=== PATIENT | female | born 1970 | race Caucasian/White ===

== ENCOUNTER 2023-12-15 13:28 | Outpatient (AMB) | payer OTHER, SELFPAY ==
--- NOTE | 2023-12-15 13:48 | A.OFFPC_ITS ---
Vital Signs 12/15/23 13:50 Height 5 ft 2.44 in Weight 158 lb 6 oz BMI 28.6 BP 104/80 Blood Pressure Location Lt brachial Position Sitting Respiration 14 Pulse 87 Pulse Source Pulse Oximeter Temp 98.2 F Temp Source Oral Pulse Oximetry (%) 95 Oxygen Delivery Method Room Air Intake Visit Reasons: Establish Care transfer from [facility] Intake Note: New patient visit Allergies cefuroxime [From Ceftin] Allergy (Unknown, Verified 12/15/23 13:55) Migraine Penicillins Allergy (Unknown, Verified 12/15/23 13:55) Rash Medication List - Last Reconciled 12/15/23 by Emiliana Ferris MD fexofenadine-pseudoephedrine 180-240 mg ER (Kaya-D 24 Hour) 1 tab PO QAM nitrofurantoin monohyd/m-cryst 100 mg 1 cap PO BID Tobacco use date assessed: 12/15/23 Dental Screening Dental Screen Date: 12/15/23 Did you have a dental visit in the last 12 months?: Yes Did you have a dental problem in the last 6 months where you did not have access to dental care?: No Was dental information given to patient?: Patient has dentist HPI HPI Comments History of Present Illness Details This is a 52 year old female with a past medical history of asthma, seasonal allergies presenting for follow up Tried wegovy without weight loss. Mounjaro was not covered. She has rejoined weight watchers and has lost ~20 pounds. DDD: Post vaccine (Covid)-intermittently fatigue, achy with joint and muscle pain. Back pain and spasm Over the past six months has noticed that she is having poor concentration and memory. She is managing by keeping task and to do lists. She has had covid in the past. 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 ROS CONSTITUTIONAL: Denies weight loss, fever and chills. HEENT: Denies changes in vision and hearing. RESPIRATORY: Denies SOB and cough. CV: Denies palpitations and CP GI: Denies abdominal pain, nausea, vomiting and diarrhea. : Denies dysuria and urinary frequency. MSK: Denies new myalgia and joint pain. SKIN: Denies rash and pruritus. NEUROLOGICAL: Denies headache PSYCHIATRIC: Denies recent changes in mood. PHYSICAL EXAM: GENERAL: Alert and oriented x 3. NAD EYES: EOMI. Anicteric. HENT: Moist mucous membranes. No scleral icterus. No cervical lymphadenopathy. LUNGS: Clear to auscultation bilaterally. CARDIOVASCULAR: Regular rate and rhythm. No murmur. No JVD. ABDOMEN: Soft, non-tender +bs EXTREMITIES: No edema. Non-tender. SKIN: No rashes or lesions. Warm. NEUROLOGIC: No focal neurological deficits. CN II-XII grossly intact PSYCHIATRIC: Cooperative. Appropriate mood and affect [facility] Medical History (Updated 12/17/23 @ 10:06 by Emiliana Ferris MD) Severe obesity Seasonal allergies Obesity Muscle cramps Joint ache DDD (degenerative disc disease), lumbar Asthma Arthritis Family History (Updated 12/15/23 @ 14:01 by Erika Greene CMA) Mother Diabetes HTN (hypertension) Hypercholesteremia Father Stomach cancer Prostate cancer Alcoholism Father Pancreatic cancer Maternal Grandfather Alcoholism Other Substance use Social History Housing: House Patient Tobacco Use Status: Never used Tobacco e-Cigarette/Vaping Use: Never Used Second Hand Smoke Exposure: Yes service: No 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 1. Little interest or pleasure in doing things: not at all 2. Feeling down, depressed, or hopeless: not at all 3. Trouble falling or staying asleep, or sleeping too much: several days 4. Feeling tired or having little energy: several days 5. Poor appetite or overeating: not at all 6. Feeling bad about yourself - or that you are a failure or have let yourself or your family down: not at all 7. Trouble concentrating on things, such as reading the newspaper or watching television: nearly every day 8. Moving or speaking so slowly that other people could have noticed. Or the opposite - being so fidgety or restless that you have been moving around a lot more than usual: not at all 9. Thoughts that you would be better off or of hurting yourself in some way: not at all Total score: 5 Depression Screening Interpretation: Positive Depression Screening Done: Yes 98461 - PHQ-9 Billing: Yes Source: Developed by Celine DcW. Griffin, Ralph Lopez and colleagues, with an educational kimberly from [employer]. Thrive Questionnaire Date Thrive assessed: 12/15/23 I am a: Patient What is your living situation today?: I have a steady place to live Within the past 12 months, did the food you bought not last and you didn't have the money to get more?: Never true Within the past 12 months, did you worry whether your food would run out before you got money to buy more?: Never true Do you have trouble paying for medicines?: No Do you have trouble getting transportation to medical appointments?: No Do you have trouble paying your heating and electricity bill?: No Do you have trouble taking care of your child, family member or friend?: No Do you have trouble with day-to-day activities such as bathing, preparing meals, shopping, managing finances, etc.?: No Are you currently unemployed and looking for a job?: No Are you interested in more education?: No Please select the resources that you would like help with: None Currently or been in a relationship where the following occur: no concerns reported THRIVE Score: 0 AUDIT C Alcohol Use Questionnaire (AUDIT-C) 1. How often do you have a drink containing alcohol?: 2-4 times a month 2. How many drinks containing alcohol do you have on a typical day when you are drinking?: 1 or 2 3. How often do you have six or more drinks on one occasion?: Never Total Score: 2 HALEY-7 AMB Questionnaire HALEY-7 Date HALEY - 7 assessed: 12/15/23 Feeling nervous, anxious, or on edge: 0 = Not at all Not being able to stop or control worryin = Not at all Worrying too much about different things: 0 = Not at all Trouble relaxin = Not at all Being so restless that it is hard to sit still: 0 = Not at all Becoming easily annoyed or irritable: 0 = Not at all Feeling afraid as if something awful might happen: 0 = Not at all Total HALEY-7 score (0-4 normal; 5-9 mild; 10-14 moderate; 15-21 severe): 0 Source: Developed by Celine Dc Kurt Kroenke and colleagues, with an educational kimberly from [employer]. HALEY-7 Assessment Billing HALEY-7 Assessment Tool: HALEY-7 Assessment 10381 Physical exam (Primary Care) Vital Signs: Last Vital Signs Temp 98.2 F 12/15/23 13:50 Pulse 87 12/15/23 13:50 Resp 14 12/15/23 13:50 BP 104/80 12/15/23 13:50 Pulse Ox 95 12/15/23 13:50 Oxygen Delivery Method Room Air 12/15/23 13:50 BMI result Body Mass Index 28.6 Tobacco/Smoking Status: Tobacco use Status Tobacco use date assessed 12/15/23 12/15/23 14:00 Patient Tobacco Use Status Never used Tobacco 12/15/23 14:00 e-Cigarette/Vaping Use Never Used 12/15/23 14:00 PHQ-9: PHQ-9 Score PHQ-9: Total score 5 12/15/23 14:21 Depression Screening Interpretation: Positive Thrive Assessment: Date of Thrive Assessment Date Thrive assessed 12/15/23 12/15/23 14:03 Currently or been in a relationship where the following occur: no concerns reported Assessment and Plan Assessment & Plan (1) Memory change: Comment: Labs ordered. Trial wellbutrin Code(s): R41.3 - Other amnesia (2) Attention deficit: Comment: Trial wellbutrin-150 x 7 days then increase to 300mg daily. Discussed potential SE Code(s): R41.840 - Attention and concentration deficit (3) Severe obesity: Comment: Continue weight watchers. Congratulated on weight loss. Code(s): E66.01 - Morbid (severe) obesity due to excess calories Orders: Orders Vitamin D 1,25 dihydroxy 12/15/23 R41.3 - Other amnesia TSH reflex Free T4 12/15/23 R41.3 - Other amnesia Vitamin B12 and Folate 12/15/23 R41.3 - Other amnesia Referrals Dermatology Referral L98.9 - Disorder of the skin and subcutaneous tissue, unspecified Medications: New bupropion HCl XL 150 mg PO DAILY 7 tabs 0RF 7 days bupropion HCl XL 300 mg PO QAM 90 tabs 3RF 90 days Coding Level of Care Code Tele Est Pt Level 4 (51578) Complex EM visit Add On G2211 Diagnoses Memory change R41.3 Attention deficit R41.840 Severe obesity E66.01 Additional Codes HALEY-7 Assessment Billing - HALEY-7 Assessment Tool: HALEY-7 Assessment 63394 ([id number])
[2023-12-15 13:50] VITALS: BP 104/80; PULSE 87; RESP 14; TEMP 36.8; O2SAT 95; BMI 28.6
== END 2023-12-15 14:24 | disposition home or self-care (01) ==
PROVIDERS: PCP Internal Medicine; Visit Provider Internal Medicine
DX: R41.3 Other amnesia (principal); R41.840 Attention and concentration deficit; E66.01 Morbid (severe) obesity due to excess calories; Z68.28 Body mass index [BMI] 28.0-28.9, adult
CPT/HCPCS: 99214; G2211

== ENCOUNTER 2023-12-15 14:27 | Outpatient (REF) | payer OTHER, SELFPAY ==
[2023-12-15 19:07] LABS: TSH reflex Free T4 2.13 uIU/mL (0.32-4.0)
[2023-12-15 19:21] LABS: Folate 7.9 ng/mL (> or = 4.0); Vitamin B12 286 pg/mL (200-900)
[2023-12-21 09:23] LABS: VITAMIN D (1,25 OH) D3 68 pg/mL; Vit D (1,25-Dihydroxy) Total 68 pg/mL (18-72); Vitamin D (1,25 OH) D2 <8 pg/mL
== END 2023-12-15 14:28 | disposition home or self-care (01) ==
LOC: HO.WFDLDS 14:27
PROVIDERS: Visit Provider Internal Medicine
DX: R41.3 Other amnesia (principal)
CPT/HCPCS: 36415; 82607; 82652; 82746; 84443

== ENCOUNTER 2024-05-30 15:50 | Outpatient (AMB) | payer OTHER, SELFPAY ==
--- NOTE | 2024-05-30 16:26 | MHC.PC.OV ---
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 Mounjaro was not covered. She has rejoined weight watchers and has lost ~20 pounds. DDD: Post vaccine (Covid)-intermittently fatigue, achy with joint and muscle pain. Back pain and spasm At last visit-Over the past six months has noticed that she is having poor concentration and memory. She is managing by keeping task and to do lists. She has had covid in the past. Doing okay on wellbutrin 150mg daily. Did not like 300mg daily. 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 Mammo: ordered, due Colonoscopy 2022 ROS CONSTITUTIONAL: Denies weight loss, fever and chills. HEENT: Denies changes in vision and hearing. RESPIRATORY: Denies SOB and cough. CV: Denies palpitations and CP GI: Denies abdominal pain, nausea, vomiting and diarrhea. : Denies dysuria and urinary frequency. MSK: Denies new myalgia and joint pain. SKIN: Denies rash and pruritus. NEUROLOGICAL: Denies headache PSYCHIATRIC: Denies recent changes in mood. PHYSICAL EXAM: GENERAL: Alert and oriented x 3. NAD EYES: EOMI. Anicteric. HENT: Moist mucous membranes. No scleral icterus. No cervical lymphadenopathy. LUNGS: Clear to auscultation bilaterally. CARDIOVASCULAR: Regular rate and rhythm. No murmur. No JVD. ABDOMEN: Soft, non-tender +bs EXTREMITIES: No edema. Non-tender. SKIN: No rashes or lesions. Warm. NEUROLOGIC: No focal neurological deficits. CN II-XII grossly intact PSYCHIATRIC: Cooperative. 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 1. Little interest or pleasure in doing things: not at all 2. Feeling down, depressed, or hopeless: not at all 3. Trouble falling or staying asleep, or sleeping too much: not at all 4. Feeling tired or having little energy: not at all 5. Poor appetite or overeating: not at all 6. Feeling bad about yourself - or that you are a failure or have let yourself or your family down: not at all 7. Trouble concentrating on things, such as reading the newspaper or watching television: nearly every day 8. Moving or speaking so slowly that other people could have noticed. Or the opposite - being so fidgety or restless that you have been moving around a lot more than usual: not at all 9. Thoughts that you would be better off or of hurting yourself in some way: not at all Total score: 3 Source: Developed by Drs. Simon Bonilla, Celine Moya, Ralph Lopez and colleagues, with an educational kimberly from [employer]. Thrive Questionnaire Date Thrive assessed: 05/23/24 I am a: Patient What is your living situation today?: I have a steady place to live Within the past 12 months, did the food you bought not last and you didn't have the money to get more?: Never true Within the past 12 months, did you worry whether your food would run out before you got money to buy more?: Never true Do you have trouble paying for medicines?: No Do you have trouble getting transportation to medical appointments?: No Do you have trouble paying your heating and electricity bill?: No Do you have trouble taking care of your child, family member or friend?: No Do you have trouble with day-to-day activities such as bathing, preparing meals, shopping, managing finances, etc.?: No Are you currently unemployed and looking for a job?: No Are you interested in more education?: No Please select the resources that you would like help with: None Currently or been in a relationship where the following occur: No concerns reported THRIVE Score: 0 AUDIT C Alcohol Use Questionnaire (AUDIT-C) 1. How often do you have a drink containing alcohol?: Monthly or less 2. How many drinks containing alcohol do you have on a typical day when you are drinking?: 1 or 2 3. How often do you have six or more drinks on one occasion?: Never Total Score: 1 HALEY-7 AMB Questionnaire HALEY-7 Date HALEY - 7 assessed: 12/15/23 Feeling nervous, anxious, or on edge: 2 = More than half the days Not being able to stop or control worryin = Not at all Worrying too much about different things: 1 = Several days Trouble relaxin = Several days Being so restless that it is hard to sit still: 3 = Nearly every day Becoming easily annoyed or irritable: 1 = Several days Feeling afraid as if something awful might happen: 0 = Not at all Total HALEY-7 score (0-4 normal; 5-9 mild; 10-14 moderate; 15-21 severe): 8 Source: Developed by Drs. Simon Bonilla, Celine Moya, Ralph Lopez and colleagues, with an educational kimberly from [employer]. Physical exam (Primary Care) Vital Signs: Last Vital Signs Pulse 93 05/30/24 16:28 BP 114/76 05/30/24 16:28 Pulse Ox 95 05/30/24 16:28 Oxygen Delivery Method Room Air 05/30/24 16:28 BMI result Body Mass Index 39.9 Tobacco/Smoking Status: Tobacco use Status Tobacco use date assessed 12/15/23 05/30/24 16:31 Patient Tobacco Use Status Never used Tobacco 05/30/24 16:31 e-Cigarette/Vaping Use Never Used 05/30/24 16:31 PHQ-9: PHQ-9 Score PHQ-9: Total score 3 05/30/24 16:37 Thrive Assessment: Date of Thrive Assessment Date Thrive assessed 05/23/24 05/30/24 16:31 Currently or been in a relationship where the following occur: No concerns reported Coding Level of Care Code Est Pt Prev Care 40-64y(65815) Diagnoses Physical exam Z00.00 Memory change R41.3 Assessment & Plan Assessment & Plan (1) Physical exam: Code(s): Z00.00 - Encounter for general adult medical examination without abnormal findings Category: Medical Plan: 54 y/o for cpe preventive measures for age discussed Due for mammogram. ordered (2) Memory change: Code(s): R41.3 - Other amnesia Category: Medical Plan: continue wellbutrin 150mg daily Start adderall 10mg twice daily Orders: Orders MM screening mammo BI 05/30/24 Z12.31 - Encounter for screening mammogram for malignant neoplasm of breast Complete Blood Count Auto Diff 05/30/24 Z00.00 - Encounter for general adult medical examination without abnormal findings, R41.840 - Attention and concentration deficit, Z13.0 - Encounter for screening for diseases of the blood and blood-forming organs and certain disorders involving the immune mechanism, Z13.228 - Encounter for screening for other metabolic disorders Comprehensive Met. Panel 05/30/24 Z00.00 - Encounter for general adult medical examination without abnormal findings, R41.840 - Attention and concentration deficit, Z13.0 - Encounter for screening for diseases of the blood and blood-forming organs and certain disorders involving the immune mechanism, Z13.228 - Encounter for screening for other metabolic disorders Lipid Panel 05/30/24 Z00.00 - Encounter for general adult medical examination without abnormal findings, R41.840 - Attention and concentration deficit, Z13.0 - Encounter for screening for diseases of the blood and blood-forming organs and certain disorders involving the immune mechanism, Z13.228 - Encounter for screening for other metabolic disorders Medications: New bupropion HCl SR (Wellbutrin SR) 150 mg PO DAILY 7 tabs 0RF dextroamphetamine-amphetamine 10 mg (Adderall) administer doses at least 4-6 hours apart; Partial Fill upon patient request. 10 mg PO BID 60 tabs 0RF Discontinued bupropion HCl XL Discontinued Reason: Doctor's Order 300 mg PO QAM 90 days 90 tabs 3RF
[2024-05-30 16:28] VITALS: BP 114/76; PULSE 93; O2SAT 95; BMI 39.9
== END 2024-05-30 17:02 | disposition home or self-care (01) ==
PROVIDERS: PCP Internal Medicine; Visit Provider Internal Medicine
DX: Z00.00 Encounter for general adult medical examination without abnormal findings (principal); R41.3 Other amnesia

== ENCOUNTER 2024-06-10 09:42 | Outpatient (REF) | payer OTHER, SELFPAY ==
[2024-06-10 10:55] LABS: MANUAL DIFF FLAG NO
[2024-06-10 11:03] LABS: Basophils Percent Auto 0.4 % (0-2); Eosinophils Absolute Auto 0.1 X10*3/uL (0.0-0.4); Eosinophils Percent Auto 1.8 % (0-4); Hemoglobin 13.1 g/dl (12.0-16.0); Imm Gran Abs Auto 0.02 X10*3/uL (0.00-0.03); Imm Gran Pct Auto 0.3 % (0.0-0.4); Lymphocytes Absolute Auto 2.4 X10*3/uL (1.2-4.9); Lymphocytes Percent Auto 33.4 % (20-40); Mean Corpuscular HGB Conc 33.6 g/dl (31.0-35.0); Mean Corpuscular Volume 89.4 fL (80.0-98.0); Mean Platelet Volume 10.2 fL (9.4-12.3); Monocytes Absolute Auto 0.7 X10*3/uL (0.1-1.2); Monocytes Percent Auto 9.5 % (2-11); Neutrophils Percent Auto 54.6 % (45-73); Platelet Count 300 X10*3/uL (160-400); Red Blood Count 4.36 X10*6/uL (4.20-5.50); Red Cell Distribution Width 13.6 % (11.0-16.0); White Blood Count 7.2 X10*3/uL (4.8-10.8)
[2024-06-10 11:52] LABS: Alanine Aminotransferase 30 U/L (0-31); Albumin Level 4.5 g/dL (3.5-5.0); Alkaline Phosphatase 32 U/L (39-117); Anion Gap 10 (12-20); Aspartate Amino Transferase 20 U/L (5-31); Bilirubin Total 0.3 mg/dL (0.0-1.0); Blood Urea Nitrogen 27 mg/dL (9-16); Calcium 10.3 mg/dL (8.4-10.2); Carbon Dioxide 29 mmol/L (22-29); Chloride 104 mmol/L (96-108); Cholesterol 217 mg/dL (<200); Estimated Glomerular Filt Rate > 60; Glucose Random 89 mg/dL (60-115); HDL Cholesterol 55 mg/dL (>40); LDL Cholesterol Calculated 143 mg/dL (<100); Potassium 4.2 mmol/L (3.3-5.1); Sodium 139 mmol/L (135-145); Total Protein 7.7 g/dL (6.5-8.0); Triglycerides 98 mg/dL (<150)
== END 2024-06-10 09:43 | disposition home or self-care (01) ==
LOC: HO.WFDLDS 09:42
PROVIDERS: Visit Provider Internal Medicine
DX: Z00.00 Encounter for general adult medical examination without abnormal findings (principal); R41.840 Attention and concentration deficit; Z13.0 Encounter for screening for diseases of the blood and blood-forming organs and certain disorders involving the immune mechanism; Z13.228 Encounter for screening for other metabolic disorders
CPT/HCPCS: 36415; 80053; 80061; 85025

== ENCOUNTER 2024-11-29 14:36 | Outpatient (AMB) | payer OTHER, SELFPAY ==
--- NOTE | 2024-11-29 14:46 | MHC.PC.OV ---
Vital Signs 11/29/24 14:50 Height 5 ft 2.44 in Weight 238 lb 8 oz BMI 43.0 BP 108/76 Blood Pressure Location Lt brachial Position Sitting Respiration 14 Pulse 102 H Pulse Source Pulse Oximeter Pulse Oximetry (%) 96 Oxygen Delivery Method Room Air Intake Visit Reasons: follow up-cpe Intake Note: Physical Economic Development Specialist Required: No Allergies cefuroxime [From Ceftin] Allergy (Unknown, Verified 11/29/24 14:46) Migraine Penicillins Allergy (Unknown, Verified 11/29/24 14:46) Rash Tobacco use date assessed: 11/29/24 Dental Screening Dental Screen Date: 11/29/24 Did you have a dental visit in the last 12 months?: Yes Did you have a dental problem in the last 6 months where you did not have access to dental care?: No Was dental information given to patient?: Patient has dentist HPI HPI Comments History of Present Illness Details This is a 54 year old female with a past medical history of hyperlipidemia, asthma, seasonal allergies presenting for follow up Tried wegovy without weight loss. Mounjaro was not covered. Despite doing weight watchers, exercising and eating a low calorie diet she has gained considerable amount of weight over the past year. DDD: Post vaccine (Covid)-intermittently fatigue, achy with joint and muscle pain. Back pain and spasm Attention deficit: She is doing well on adderall. Signed CSA today. 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 Mammo: UTD Colonoscopy 2022 ROS CONSTITUTIONAL: Denies weight loss, fever and chills. HEENT: Denies changes in vision and hearing. RESPIRATORY: Denies SOB and cough. CV: Denies palpitations and CP GI: Denies abdominal pain, nausea, vomiting and diarrhea. : Denies dysuria and urinary frequency. MSK: Denies new myalgia and joint pain. SKIN: Denies rash and pruritus. NEUROLOGICAL: Denies headache PSYCHIATRIC: Denies recent changes in mood. PHYSICAL EXAM: GENERAL: Alert and oriented x 3. NAD EYES: EOMI. Anicteric. HENT: Moist mucous membranes. No scleral icterus. No cervical lymphadenopathy. LUNGS: Clear to auscultation bilaterally. CARDIOVASCULAR: Regular rate and rhythm. No murmur. No JVD. ABDOMEN: Soft, non-tender +bs EXTREMITIES: No edema. Non-tender. SKIN: No rashes or lesions. Warm. NEUROLOGIC: No focal neurological deficits. CN II-XII grossly intact PSYCHIATRIC: Cooperative. 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 1. Little interest or pleasure in doing things: not at all 2. Feeling down, depressed, or hopeless: not at all 3. Trouble falling or staying asleep, or sleeping too much: not at all 4. Feeling tired or having little energy: not at all 5. Poor appetite or overeating: several days 6. Feeling bad about yourself - or that you are a failure or have let yourself or your family down: not at all 7. Trouble concentrating on things, such as reading the newspaper or watching television: more than half the days 8. Moving or speaking so slowly that other people could have noticed. Or the opposite - being so fidgety or restless that you have been moving around a lot more than usual: not at all 9. Thoughts that you would be better off or of hurting yourself in some way: not at all Total score: 3 Depression Screening Interpretation: Negative Depression Screening Done: Yes 09018 - PHQ-9 Billing: Yes Source: Developed by Drs. Simon Bonilla, Celine Moya, Ralph Lopez and colleagues, with an educational kimberly from [employer]. Thrive Questionnaire Date Thrive assessed: 11/29/24 I am a: Patient What is your living situation today?: I have a steady place to live Within the past 12 months, did the food you bought not last and you didn't have the money to get more?: Never true Within the past 12 months, did you worry whether your food would run out before you got money to buy more?: Never true Do you have trouble paying for medicines?: No Do you have trouble getting transportation to medical appointments?: No Do you have trouble paying your heating and electricity bill?: No Do you have trouble taking care of your child, family member or friend?: No Do you have trouble with day-to-day activities such as bathing, preparing meals, shopping, managing finances, etc.?: No Are you currently unemployed and looking for a job?: No Are you interested in more education?: No Please select the resources that you would like help with: None Currently or been in a relationship where the following occur: No concerns reported THRIVE Score: 0 AUDIT C Alcohol Use Questionnaire (AUDIT-C) 1. How often do you have a drink containing alcohol?: Monthly or less 2. How many drinks containing alcohol do you have on a typical day when you are drinking?: 1 or 2 3. How often do you have six or more drinks on one occasion?: Never Total Score: 1 HALEY-7 AMB Questionnaire HALEY-7 Date HALEY - 7 assessed: 11/29/24 Feeling nervous, anxious, or on edge: 1 = Several days Not being able to stop or control worryin = Several days Worrying too much about different things: 1 = Several days Trouble relaxin = Several days Being so restless that it is hard to sit still: 1 = Several days Becoming easily annoyed or irritable: 1 = Several days Feeling afraid as if something awful might happen: 0 = Not at all Total HALEY-7 score (0-4 normal; 5-9 mild; 10-14 moderate; 15-21 severe): 6 Source: Developed by Drs. Simon Bonilla, Celine Moya, Ralph Lopez and colleagues, with an educational kimberly from [email or web address] HALEY-7 Assessment Billing HALEY-7 Assessment Tool: HALEY-7 Assessment 48674 Physical exam (Primary Care) Vital Signs: Last Vital Signs Pulse 102 H 11/29/24 14:50 Resp 14 11/29/24 14:50 BP 108/76 11/29/24 14:50 Pulse Ox 96 11/29/24 14:50 Oxygen Delivery Method Room Air 11/29/24 14:50 BMI result Body Mass Index 43.0 Tobacco/Smoking Status: Tobacco use Status Tobacco use date assessed 11/29/24 11/29/24 14:52 Patient Tobacco Use Status Never used Tobacco 11/29/24 14:52 e-Cigarette/Vaping Use Never Used 11/29/24 14:52 PHQ-9: PHQ-9 Score PHQ-9: Total score 3 11/29/24 14:52 Depression Screening Interpretation: Negative Thrive Assessment: Date of Thrive Assessment Date Thrive assessed 05/23/24 11/29/24 14:52 Currently or been in a relationship where the following occur: No concerns reported Coding Level of Care Code Est Pt Level 4 (20996) Diagnoses Hyperlipidemia, unspecified hyperlipidemia type E78.5 Hyperlipidemia type: unspecified Obesity, Class III, BMI 40-49.9 (morbid obesity) E66.813 Attention deficit R41.840 Additional Codes HALEY-7 Assessment Billing - HALEY-7 Assessment Tool: HALEY-7 Assessment 03005 ([id number]) PHQ-9 - 88866 - PHQ-9 Billing: Yes ([id number]) Assessment & Plan Assessment & Plan (1) Hyperlipidemia: Code(s): E78.5 - Hyperlipidemia, unspecified Category: Medical Qualifiers: Hyperlipidemia type: unspecified Qualified Code(s): E78.5 - Hyperlipidemia, unspecified (2) Obesity, Class III, BMI 40-49.9 (morbid obesity): Code(s): E66.813 - Obesity, class 3 Category: Medical (3) Attention deficit: Comment: Doing well on adderall Code(s): R41.840 - Attention and concentration deficit Category: Medical Plan 54 year old for follow up Weight gain despite weight watchers, exercise. Hyperlipidemia-elevated LDL at 143 Zepbound sent Continue adderall Medications: New Zepbound (tirzepatide (weight loss)) for 4 weeks 2.5 mg (0.5 mL) subcut QWEEK 2 mL 1RF NS E66.813 - Obesity, class 3, E78.5 - Hyperlipidemia, unspecified Changed From dextroamphetamine-amphetamine 10 mg (Adderall) administer doses at least 4-6 hours apart; Partial Fill upon patient request. 10 mg PO BID 60 tabs 0RF R41.840 - Attention and concentration deficit To dextroamphetamine-amphetamine 10 mg (Adderall) administer doses at least 4-6 hours apart; Partial Fill upon patient request. 10 mg PO BID 60 days 120 tabs 0RF R41.840 - Attention and concentration deficit
[2024-11-29 14:50] VITALS: BP 108/76; PULSE 102; RESP 14; O2SAT 96; BMI 43.0
== END 2024-11-29 15:05 | disposition home or self-care (01) ==
LOC: HO.HMCFM 14:37
PROVIDERS: PCP Internal Medicine; Visit Provider Internal Medicine
DX: E78.5 Hyperlipidemia, unspecified (principal); E66.813 Obesity, class 3; R41.840 Attention and concentration deficit; Z68.41 Body mass index [BMI] 40.0-44.9, adult

== ENCOUNTER → 2024-11-29 14:36 | Outpatient (BNVA) | payer OTHER, SELFPAY | PROVIDERS: PCP Internal Medicine; Visit Provider Internal Medicine | DX: E66.813 Obesity, class 3 (principal); E78.5 Hyperlipidemia, unspecified; R41.840 Attention and concentration deficit; J45.909 Unspecified asthma, uncomplicated; Z68.41 Body mass index [BMI] 40.0-44.9, adult | CPT/HCPCS: 96127 ==

== ENCOUNTER 2025-06-05 15:54 | Outpatient (AMB) | payer OTHER, SELFPAY ==
--- NOTE | 2025-06-05 15:58 | A.OFFPC_ITS ---
Vital Signs 06/05/25 15:59 Height 5 ft 2.44 in Weight 246 lb 4 oz BMI 44.4 BP 108/74 Blood Pressure Location Lt brachial Position Sitting Respiration 16 Pulse 109 H Pulse Source Pulse Oximeter Temp 97.6 F Temp Source Oral Pulse Oximetry (%) 95 Oxygen Delivery Method Room Air Intake Visit Reasons: CPE Intake Note: Physical Soaker Meat Required: No Allergies cefuroxime (From Ceftin) Allergy (Unknown, Verified 06/05/25 16:01) Migraine Penicillins Allergy (Unknown, Verified 06/05/25 16:01) Rash Tobacco use date assessed: 06/05/25 Dental Screening Dental Screen Date: 11/29/24 HPI HPI Comments History of Present Illness Details This is a 54 year old female with a past medical history of hyperlipidemia, asthma, seasonal allergies presenting for physcial exam Tried wegovy without weight loss. Mounjaro was not covered. Despite doing weight watchers, exercising and eating a low calorie diet she has gained considerable amount of weight over the past year. She wants to try zepbound direct from [employer]. DDD: Post vaccine (Covid)-intermittently fatigue, achy with joint and muscle pain. Back pain and spasm Ongoing head, sinus congestion. Taking claritin without sustained relief Attention deficit: She is doing well on adderall. Signed CSA today. 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 HEENT: Denies changes in vision and hearing. Sinus congestion RESPIRATORY: Denies SOB and cough. CV: Denies palpitations and CP GI: Denies abdominal pain, nausea, vomiting and diarrhea. : Denies dysuria and urinary frequency. MSK: Denies new myalgia and joint pain. SKIN: Denies rash and pruritus. NEUROLOGICAL: Denies headache PSYCHIATRIC: Denies recent changes in mood. PHYSICAL EXAM: GENERAL: Alert and oriented x 3. NAD EYES: EOMI. Anicteric. HENT: Moist mucous membranes. Narrowed ear canal, clear middle effusion. LUNGS: Clear to auscultation bilaterally. CARDIOVASCULAR: Regular rate and rhythm. No murmur. No JVD. ABDOMEN: Soft, non-tender +bs EXTREMITIES: No edema. Non-tender. SKIN: No rashes or lesions. Warm. NEUROLOGIC: No focal neurological deficits. CN II-XII grossly intact PSYCHIATRIC: Cooperative. 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/hazards: No Cognitive needs: No Hearing needs: No Vision needs: No Questionnaire Thrive Questionnaire Date Thrive assessed: 11/29/24 I am a: Patient What is your living situation today?: I have a steady place to live Within the past 12 months, did the food you bought not last and you didn't have the money to get more?: Never true Within the past 12 months, did you worry whether your food would run out before you got money to buy more?: Never true Do you have trouble paying for medicines?: No Do you have trouble getting transportation to medical appointments?: No Do you have trouble paying your heating and electricity bill?: No Do you have trouble taking care of your child, family member or friend?: No Do you have trouble with day-to-day activities such as bathing, preparing meals, shopping, managing finances, etc.?: No Are you currently unemployed and looking for a job?: No Are you interested in more education?: No Please select the resources that you would like help with: None Currently or been in a relationship where the following occur: No concerns reported THRIVE Score: 0 AUDIT C Alcohol Use Questionnaire (AUDIT-C) 1. How often do you have a drink containing alcohol?: Monthly or less 2. How many drinks containing alcohol do you have on a typical day when you are drinking?: 1 or 2 3. How often do you have six or more drinks on one occasion?: Never Total Score: 1 HALEY-7 AMB Questionnaire HALEY-7 Date HALEY - 7 assessed: 11/29/24 Source: Developed by DrsJeancarlos Bonilla, Celine Moya, Ralph Lopez and colleagues, with an educational kimberly from [employer]. Physical exam (Primary Care) Vital Signs: Last Vital Signs Temp 97.6 F 06/05/25 15:59 Pulse 109 H 06/05/25 15:59 Resp 16 06/05/25 15:59 BP 108/74 06/05/25 15:59 Pulse Ox 95 06/05/25 15:59 Oxygen Delivery Method Room Air 06/05/25 15:59 BMI result Body Mass Index 44.4 Tobacco/Smoking Status: Tobacco use Status Tobacco use date assessed 06/05/25 06/05/25 16:02 Patient Tobacco Use Status Never used Tobacco 06/05/25 16:02 e-Cigarette/Vaping Use Never Used 06/05/25 16:02 Thrive Assessment: Date of Thrive Assessment Date Thrive assessed 11/29/24 06/05/25 16:02 Currently or been in a relationship where the following occur: No concerns reported Coding Level of Care Code Est Pt Prev Care 40-64y(45767) Diagnoses Physical exam Z00.00 Attention deficit R41.840 Obesity, Class III, BMI 40-49.9 (morbid obesity) E66.813 Assessment & Plan Assessment & Plan (1) Physical exam: Code(s): Z00.00 - Encounter for general adult medical examination without abnormal findings Category: Medical (2) Attention deficit: Comment: Doing well on adderall Code(s): R41.840 - Attention and concentration deficit Category: Medical (3) Obesity, Class III, BMI 40-49.9 (morbid obesity): Code(s): E66.813 - Obesity, class 3 Category: Medical Plan CPE Interval history reviewed Preventive measures for age discussed Mammo ordered-[facility] Sinusitis-doxycycline sent Obesity-zepbound sent to [facility] Labs ordered Orders: Orders MM tomosynthesis screening BI 06/05/25 Z12.31 - Encounter for screening mammogram for malignant neoplasm of breast Lipid Panel 06/05/25 E66.01 - Morbid (severe) obesity due to excess calories, E78.5 - Hyperlipidemia, unspecified, R35.89 - Other polyuria, Z13.0 - Encounter for screening for diseases of the blood and blood-forming organs and certain disorders involving the immune mechanism, Z13.228 - Encounter for screening for other metabolic disorders Vitamin B12 and Folate 06/05/25 E612.04 - Morbid (severe) obesity due to excess calories, E78.5 - Hyperlipidemia, unspecified, R35.89 - Other polyuria, Z13.0 - Encounter for screening for diseases of the blood and blood-forming organs and certain disorders involving the immune mechanism, Z13.228 - Encounter for screening for other metabolic disorders TSH reflex Free T4 06/05/25. - Morbid (severe) obesity due to excess calories, E78.5 - Hyperlipidemia, unspecified, R35.89 - Other polyuria, Z13.0 - Encounter for screening for diseases of the blood and blood-forming organs and certain disorders involving the immune mechanism, Z13.228 - Encounter for screening for other metabolic disorders Lyme IgG/IgM w/reflex to WB 06/05/25 M25.50 - Pain in unspecified joint Complete Blood Count Auto Diff 06/05/25 - Morbid (severe) obesity due to excess calories, E78.5 - Hyperlipidemia, unspecified, R35.89 - Other polyuria, Z13.0 - Encounter for screening for diseases of the blood and blood-forming organs and certain disorders involving the immune mechanism, Z13.228 - Encounter for screening for other metabolic disorders Comprehensive Met. Panel 06/05/25 - Morbid (severe) obesity due to excess calories, E78.5 - Hyperlipidemia, unspecified, R35.89 - Other polyuria, Z13.0 - Encounter for screening for diseases of the blood and blood-forming organs and certain disorders involving the immune mechanism, Z13.228 - Encounter for screening for other metabolic disorders Hemoglobin A1c 06/05/25. - Morbid (severe) obesity due to excess calories, E78.5 - Hyperlipidemia, unspecified, R35.89 - Other polyuria, Z13.0 - Encounter for screening for diseases of the blood and blood-forming organs and certain disorders involving the immune mechanism, Z13.228 - Encounter for screening for other metabolic disorders Lutenizing Hormone 06/05/25 M25.50 - Pain in unspecified joint Erythrocyte Sedimentation Rate 06/05/25 M25.50 - Pain in unspecified joint Estradiol Ultra Sensitive 06/05/25 M25.50 - Pain in unspecified joint Medications: New doxycycline hyclate 100 mg PO BID 20 tabs 0RF Zepbound (tirzepatide (weight loss)) 15 mg (0.5 mL) subcut QWEEK 6 mL 3RF NS E66.01 - Morbid (severe) obesity due to excess calories Refilled dextroamphetamine-amphetamine 10 mg (Adderall) administer doses at least 4-6 hours apart; Partial Fill upon patient request. 10 mg PO BID 120 tabs 0RF 60 days R41.840 - Attention and concentration deficit On Hold Wegovy (semaglutide (weight loss)) Hold Comment: Doctor's Order 1 mg (0.5 mL) subcut Q7D 6 mL 3RF NS E66.01 - Morbid (severe) obesity due to excess calories
[2025-06-05 15:59] VITALS: BP 108/74; PULSE 109; RESP 16; TEMP 36.4; O2SAT 95; BMI 44.4
== END 2025-06-05 16:36 | disposition home or self-care (01) ==
LOC: HO.HMCFM 15:55
PROVIDERS: PCP Internal Medicine; Visit Provider Internal Medicine
DX: Z00.00 Encounter for general adult medical examination without abnormal findings (principal); R41.840 Attention and concentration deficit; E66.813 Obesity, class 3; Z68.41 Body mass index [BMI] 40.0-44.9, adult

== ENCOUNTER 2025-06-19 11:15 | Outpatient (REF) | payer OTHER, SELFPAY ==
[2025-06-19 18:03] LABS: MANUAL DIFF FLAG NO
[2025-06-19 18:17] LABS: Hematocrit 42.5 % (37.0-47.0); Hemoglobin 13.8 g/dl (12.0-16.0); Imm Gran Abs Auto 0.01 X10*3/uL (0.00-0.03); Imm Gran Pct Auto 0.2 % (0.0-0.4); Lymphocytes Absolute Auto 2.0 X10*3/uL (1.2-4.9); Mean Corpuscular HGB Conc 32.5 g/dl (31.0-35.0); Mean Corpuscular Hemoglobin 29.3 pg (27.0-33.0); Mean Corpuscular Volume 90.2 fL (80.0-98.0); NRBC Abs Auto 0.000 X10*3/uL (0.0-0.012); NRBC Pct Auto 0.0 /100WBC (0.0-0.2); Platelet Count 333 X10*3/uL (160-400); Red Blood Count 4.71 X10*6/uL (4.20-5.50); White Blood Count 6.1 X10*3/uL (4.8-10.8)
[2025-06-19 18:49] LABS: Alanine Aminotransferase 38 U/L (0-31); Albumin Level 4.6 g/dL (3.5-5.0); Alkaline Phosphatase 42 U/L (39-117); Anion Gap 12 (12-20); Aspartate Amino Transferase 28 U/L (5-31); Blood Urea Nitrogen 25 mg/dL (9-16); Calcium 10.0 mg/dL (8.4-10.2); Carbon Dioxide 24 mmol/L (22-29); Chloride 106 mmol/L (96-108); Cholesterol 227 mg/dL (<200); Estimated Glomerular Filt Rate > 60; HDL Cholesterol 64 mg/dL (>40); Potassium 4.2 mmol/L (3.3-5.1); Sodium 138 mmol/L (135-145); Total Protein 7.6 g/dL (6.5-8.0); Triglycerides 122 mg/dL (<150)
[2025-06-19 19:17] LABS: Folate 10.8 ng/mL (> or = 4.0); Vitamin B12 273 pg/mL (200-900)
[2025-06-20 06:58] LABS: Lyme Abs Screen <0.90 index
== END 2025-06-19 11:16 | disposition home or self-care (01) ==
LOC: HO.WFDLDS 11:15
PROVIDERS: Visit Provider Internal Medicine
DX: Z01.84 Encounter for antibody response examination (principal); E66.01 Morbid (severe) obesity due to excess calories; Z13.228 Encounter for screening for other metabolic disorders; Z13.0 Encounter for screening for diseases of the blood and blood-forming organs and certain disorders involving the immune mechanism; E78.5 Hyperlipidemia, unspecified; R35.89 Other polyuria; M25.50 Pain in unspecified joint; Z13.1 Encounter for screening for diabetes mellitus
CPT/HCPCS: 36415; 80053; 80061; 82607; 82670; 82746; 83002; 83036; 84443; 85025; 85652; 86617; 86618

== ENCOUNTER 2025-07-03 13:53 | Outpatient (AMB) | payer OTHER, SELFPAY ==
--- NOTE | 2025-07-03 13:59 | A.OFFPC_ITS ---
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 Is last menstrual period known: No Post menopausal: No Patient : No Allergies cefuroxime (From Ceftin) Allergy (Unknown, Verified 07/03/25 14:06) Migraine Penicillins Allergy (Unknown, Verified 07/03/25 14:06) Rash Tobacco use date assessed: 07/03/25 Dental Screening Dental Screen Date: 07/03/25 Did you have a dental visit in the last 12 months?: Yes Did you have a dental problem in the last 6 months where you did not have access to dental care?: No Was dental information given to patient?: Patient has dentist HPI HPI Comments History of Present Illness Details This is a 54 year old female with a past medical history of hyperlipidemia, asthma, seasonal allergies presenting for follow up [facility]. Recently started. Tried wegovy without weight loss. Mounjaro was not covered. Despite doing weight watchers, exercising and eating a low calorie diet she has gained considerable amount of weight over the past year. Post vaccine (Covid)-intermittently fatigue, achy with joint and muscle pain. Back pain and spasm. Adderall has helped. She is frequently awakening during sleep and snoring. Ongoing head, sinus congestion. Taking claritin without sustained relief Attention deficit: She is doing well on adderall. gusset edger: Dr Cris Garcia Mammo: UTD Colonoscopy 2022 ROS see HPI PHYSICAL EXAM: GENERAL: Alert and oriented x 3. NAD EYES: EOMI. Anicteric. HENT: Moist mucous membranes. Narrowed ear canal, clear middle effusion. LUNGS: Clear to auscultation bilaterally. CARDIOVASCULAR: Regular rate and rhythm. No murmur. No JVD. ABDOMEN: Soft, non-tender +bs EXTREMITIES: No edema. Non-tender. SKIN: No rashes or lesions. Warm. NEUROLOGIC: No focal neurological deficits. CN II-XII grossly intact PSYCHIATRIC: Cooperative. Appropriate mood and affect [facility] Medical History Severe obesity Seasonal allergies Obesity Muscle cramps Joint ache DDD (degenerative disc disease), lumbar Asthma Arthritis Family History Mother Diabetes HTN (hypertension) Hypercholesteremia Father Stomach cancer Prostate cancer Alcoholism Father Pancreatic cancer Maternal Grandfather Alcoholism Other Substance use Social History Housing: House Alcohol intake: current Comment: rarely Patient Tobacco Use Status: Never used Tobacco e-Cigarette/Vaping Use: Never Used Second Hand Smoke Exposure: Yes Use of substances other than those prescribed or required for medical reasons: No Patient : No service: No 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 1. Little interest or pleasure in doing things: not at all 2. Feeling down, depressed, or hopeless: not at all 3. Trouble falling or staying asleep, or sleeping too much: nearly every day 4. Feeling tired or having little energy: nearly every day 5. Poor appetite or overeating: several days 6. Feeling bad about yourself - or that you are a failure or have let yourself or your family down: not at all 7. Trouble concentrating on things, such as reading the newspaper or watching television: several days 8. Moving or speaking so slowly that other people could have noticed. Or the opposite - being so fidgety or restless that you have been moving around a lot more than usual: not at all 9. Thoughts that you would be better off or of hurting yourself in some way: not at all Total score: 8 Depression Screening Interpretation: Positive (pursue sleep apnea testing) Depression Screening Follow-up: Existing condition Depression Screening Done: Yes 44638 - PHQ-9 Billing: Yes Source: Developed by Drs. Simon Bonilla, Celine Moya, Ralph Lopez and colleagues, with an educational kimberly from [employer]. Thrive Questionnaire Date Thrive assessed: 07/03/25 I am a: Patient What is your living situation today?: I have a steady place to live Within the past 12 months, did the food you bought not last and you didn't have the money to get more?: Never true Within the past 12 months, did you worry whether your food would run out before you got money to buy more?: Never true Do you have trouble paying for medicines?: No Do you have trouble getting transportation to medical appointments?: No Do you have trouble paying your heating and electricity bill?: No Do you have trouble taking care of your child, family member or friend?: No Do you have trouble with day-to-day activities such as bathing, preparing meals, shopping, managing finances, etc.?: No Are you currently unemployed and looking for a job?: No Are you interested in more education?: No Currently or been in a relationship where the following occur: No concerns reported THRIVE Score: 0 AUDIT C Alcohol Use Questionnaire (AUDIT-C) 1. How often do you have a drink containing alcohol?: Monthly or less 2. How many drinks containing alcohol do you have on a typical day when you are drinking?: 1 or 2 3. How often do you have six or more drinks on one occasion?: Never Total Score: 1 Score Reviewed/Action Taken: Yes HALEY-7 AMB Questionnaire HALEY-7 Date HALEY - 7 assessed: 07/03/25 Feeling nervous, anxious, or on edge: 0 = Not at all Not being able to stop or control worryin = Not at all Worrying too much about different things: 0 = Not at all Trouble relaxin = More than half the days Being so restless that it is hard to sit still: 2 = More than half the days Becoming easily annoyed or irritable: 1 = Several days Feeling afraid as if something awful might happen: 0 = Not at all Total HALEY-7 score (0-4 normal; 5-9 mild; 10-14 moderate; 15-21 severe): 5 Source: Developed by Drs. Simon Bonilla, Celine Moya, Ralph Lopez and colleagues, with an educational kimberly from [employer] HALEY-7 Assessment Billing HALEY-7 Assessment Tool: HALEY-7 Assessment 75363 ACT Questionnaire In the past 4 weeks, how much of the time did your asthma keep you from getting as much done at work, school or at home?: None of the time During the past 4 weeks, how often have you had shortness of breath?: Not at all During the past 4 weeks, how often did your asthma symptoms wake you up at night or earlier than usual in the morning?: Not at all During the past 4 weeks, how often have you had to use your rescue inhaler or nebulizer medication?: Not at all How would you rate your asthma control during the past 4 weeks?: Completely controlled ACT Interpretation: Positive Score: 25 Physical exam (Primary Care) Vital Signs: Last Vital Signs Temp 97.8 F 07/03/25 14:08 Pulse 79 07/03/25 14:08 Resp 16 07/03/25 14:08 BP 121/57 L 07/03/25 14:08 Pulse Ox 96 07/03/25 14:08 Oxygen Delivery Method Room Air 07/03/25 14:08 BMI result Body Mass Index 43.8 Tobacco/Smoking Status: Tobacco use Status Tobacco use date assessed 07/03/25 07/03/25 14:11 Patient Tobacco Use Status Never used Tobacco 07/03/25 14:08 e-Cigarette/Vaping Use Never Used 07/03/25 14:08 PHQ-9: PHQ-9 Score PHQ-9: Total score 8 07/03/25 14:22 Depression Screening Interpretation: Positive (pursue sleep apnea testing) Depression Screening Follow-up: Existing condition Thrive Assessment: Date of Thrive Assessment Date Thrive assessed 07/03/25 07/03/25 14:18 Currently or been in a relationship where the following occur: No concerns reported Coding Level of Care Code Est Pt Level 4 (14669) Diagnoses Obesity, Class III, BMI 40-49.9 (morbid obesity) E66.813 Snoring R06.83 Maxillary sinusitis, unspecified chronicity J32.0 Sinusitis location: maxillary Chronicity: unspecified Additional Codes Asthma Control Questionnaire - ACT Interpretation: Positive ([id number]) HALEY-7 Assessment Billing - HALEY-7 Assessment Tool: HALEY-7 Assessment 08750 ([id number]) PHQ-9 - 89112 - PHQ-9 Billing: Yes ([id number]) Assessment & Plan Assessment & Plan (1) Obesity, Class III, BMI 40-49.9 (morbid obesity): Code(s): E66.813 - Obesity, class 3 Category: Medical (2) Snoring: Code(s): R06.83 - Snoring (3) Sinusitis: Code(s): J32.9 - Chronic sinusitis, unspecified Qualifiers: Sinusitis location: maxillary Chronicity: unspecified Qualified Code(s): J32.0 - Chronic maxillary sinusitis Plan 55 year old for follow up Snoring, apnea-sleep study ordered Obesity-continue zebpound Sinusitis-improvement while on abx, then recurrence. Levofloxacin ordered Orders: Orders RT home sleep study 07/03/25 R06.83 - Snoring, R53.82 - Chronic fatigue, unspecified Medications: New levofloxacin 750 mg PO DAILY 10 tabs 0RF loratadine-pseudoephedrine 5-120 mg ER (Claritin-D 12 Hour) 1 tab PO DAILY PRN 180 tabs 1RF nasal congestion
[2025-07-03 14:08] VITALS: BP 121/57; PULSE 79; RESP 16; TEMP 36.6; O2SAT 96; BMI 43.8
== END 2025-07-03 14:37 | disposition home or self-care (01) ==
PROVIDERS: PCP Internal Medicine; Visit Provider Internal Medicine
DX: E66.813 Obesity, class 3 (principal); R06.83 Snoring; J32.0 Chronic maxillary sinusitis

== ENCOUNTER → 2025-07-03 13:53 | Outpatient (BNVA) | payer OTHER, SELFPAY | PROVIDERS: PCP Internal Medicine; Visit Provider Internal Medicine | DX: E66.813 Obesity, class 3 (principal); E78.5 Hyperlipidemia, unspecified; J45.909 Unspecified asthma, uncomplicated; R06.83 Snoring; J32.0 Chronic maxillary sinusitis; Z68.41 Body mass index [BMI] 40.0-44.9, adult | CPT/HCPCS: 96127; 96160 ==